=== PATIENT | female | born 1950 | race American Indian/Alaskan Native ===

== ENCOUNTER 2018-09-05 15:53 | Inpatient (IN) | payer MEDICARE ==
[2018-09-05] MEDS ORDERED: DUONEB *Not for PRN Use IH ONE (16:34)
--- NOTE | 2018-09-05 16:38 | Emergency Department Report ---
Addendum entered and electronically signed by DILCIA KUNZ FNP 09/05/18 19:03: EKG interpreted by attending Normal sinus rhythm Original Note: ED Shortness of Breath HPI - General Chief Complaint: Dyspnea/Respdistress Stated Complaint: SOB/CHEYENNE Source: patient Mode of arrival: Ambulatory Limitations: No Limitations - History of Present Illness Initial Comments: This is a 68-year-old [place] female who presents with cough, shortness of breath for one week. Patient states she saw her primary care provider and will start yesterday and was diagnosed with pneumonia. Patient states she was given a shot of antibiotics while in office and started on Augmentin and cough syrup. Patient states she could only afford to purchase antibiotics which is not improved in symptoms. Stays on discharge paperwork her PCP ordered an inhaler but never received area pharmacy. Patient reports cough, chest pain and back pain on the right side is worse than on initial symptoms. MD Complaint: shortness of breath, cough, pain with inspiration Onset/Timin -: week(s) Radiation: back Severity: severe Pain Scale: 7 Quality: sharp, stabbing Consistency: intermittent Improves With: nothing Worsens With: movement, coughing, inspiration Associated Symptoms: chest pain, pain with inspiration, sputum production - Related Data Home Oxygen Therapy: No Home Medications Medication Instructions Recorded Confirmed Last Taken Gabapentin [Neurontin] 800 mg PO Q8H 12/13/15 12/13/15 Unknown Losartan [Cozaar] 50 mg PO QDAY 12/13/15 12/13/15 Unknown Naproxen [Naprosyn TAB] 375 mg PO BID 12/13/15 12/13/15 Unknown clonazePAM 1 mg PO QHS 12/13/15 12/13/15 Unknown metFORMIN [Glucophage] 1,000 mg PO BID 12/13/15 12/13/15 Unknown Previous Rx's Medication Instructions Recorded Last Taken Type Ciprofloxacin HCl [Ciprofloxacin 500 mg PO BID #14 tablet 12/16/15 Unknown Rx TAB] Citalopram [Celexa] 40 mg PO QDAY #30 12/16/15 Unknown Rx Duloxetine HCl [DULoxetine] 20 mg PO QDAY #30 12/16/15 Unknown Rx Zolpidem [Ambien] 5 mg PO QHS PRN #30 tablet 12/16/15 Unknown Rx metroNIDAZOLE [Flagyl] 500 mg PO Q8HR #21 tablet 12/16/15 Unknown Rx Allergies Allergy/AdvReac Type Severity Reaction Status Date / Time Iodinated Contrast- Oral and Allergy Angioedema Verified 09/05/18 15:57 IV Dye [Iodinated Contrast Media - IV Dye] ibuprofen [From Motrin] AdvReac Vomiting Verified 09/05/18 15:57 ED Review of Systems ROS: Stated complaint: SOB/CHEYENNE Other details as noted in HPI Constitutional: denies: chills, fever ENT: congestion. denies: ear pain, throat pain Respiratory: cough, shortness of breath, SOB with exertion. denies: wheezing Cardiovascular: chest pain (right sided chest pain). denies: palpitations Gastrointestinal: denies: abdominal pain, nausea, diarrhea Musculoskeletal: back pain. denies: joint swelling, arthralgia Neurological: denies: headache, weakness, paresthesias Psychiatric: denies: anxiety, depression ED Past Medical Hx - Past Medical History Hx Hypertension: Yes Hx Diabetes: Yes Hx Arthritis: Yes - Social History Smoking Status: Former Smoker Substance Use Type: None - Medications Home Medications: Home Medications Medication Instructions Recorded Confirmed Last Taken Type Gabapentin [Neurontin] 800 mg PO Q8H 12/13/15 12/13/15 Unknown History Losartan [Cozaar] 50 mg PO QDAY 12/13/15 12/13/15 Unknown History Naproxen [Naprosyn TAB] 375 mg PO BID 12/13/15 12/13/15 Unknown History clonazePAM 1 mg PO QHS 12/13/15 12/13/15 Unknown History metFORMIN [Glucophage] 1,000 mg PO BID 12/13/15 12/13/15 Unknown History Ciprofloxacin HCl [Ciprofloxacin 500 mg PO BID #14 tablet 12/16/15 Unknown Rx TAB] Citalopram [Celexa] 40 mg PO QDAY #30 12/16/15 12/13/15 Unknown Rx Duloxetine HCl [DULoxetine] 20 mg PO QDAY #30 12/16/15 12/13/15 Unknown Rx Zolpidem [Ambien] 5 mg PO QHS PRN #30 tablet 12/16/15 Unknown Rx metroNIDAZOLE [Flagyl] 500 mg PO Q8HR #21 tablet 12/16/15 Unknown Rx ED Physical Exam - General Limitations: No Limitations General appearance: alert, in no apparent distress, obese - ENT ENT exam: Present: mucous membranes moist, other (turbinates mildly congested with clear discharge). Absent: TM's normal bilaterally, normal external ear exam - Respiratory Respiratory exam: Present: rhonchi. Absent: wheezes, rales, stridor, chest wall tenderness, accessory muscle use, decreased breath sounds, prolonged expiratory - Cardiovascular Cardiovascular Exam: Present: regular rate, normal rhythm. Absent: normal heart sounds, systolic murmur, diastolic murmur, rubs, gallop - GI/Abdominal GI/Abdominal exam: Present: soft, normal bowel sounds. Absent: distended, tenderness, guarding, rebound, rigid, organomegaly, mass - Neurological Exam Neurological exam: Present: alert, oriented X3 - Psychiatric Psychiatric exam: Present: normal affect, normal mood - Skin Skin exam: Present: warm, dry, intact, normal color. Absent: rash ED Course Vital Signs 09/05/18 09/05/18 09/05/18 15:57 17:30 17:45 Temperature 97.9 F Pulse Rate 77 Pulse Rate [ 68 72 Anterior] Respiratory 24 Rate Respiratory 26 H 26 H Rate [Anterior] Blood Pressure 159/59 O2 Sat by Pulse 93 Oximetry ED Medical Decision Making - Lab Data Result diagrams: 09/05/18 16:45 09/05/18 16:48 Lab Results 09/05/18 09/05/18 Range/Units 16:45 16:48 WBC 12.9 H (4.5-11.0) K/mm3 RBC 3.48 L (3.65-5.03) M/mm3 Hgb 10.2 (10.1-14.3) gm/dl Hct 32.4 (30.3-42.9) % MCV 93 (79-97) fl MCH 30 (28-32) pg MCHC 32 (30-34) % RDW 13.0 L (13.2-15.2) % Plt Count 439 (140-440) K/mm3 Lymph % (Auto) 24.6 (13.4-35.0) % [place] % (Auto) 6.7 (0.0-7.3) % Eos % (Auto) 0.4 (0.0-4.3) % Baso % (Auto) 0.4 (0.0-1.8) % Lymph # 3.2 (1.2-5.4) K/mm3 [place] # 0.9 H (0.0-0.8) K/mm3 Eos # 0.1 (0.0-0.4) K/mm3 Baso # 0.1 (0.0-0.1) K/mm3 Seg Neutrophils % 67.9 (40.0-70.0) % Seg Neutrophils # 8.8 H (1.8-7.7) K/mm3 Sodium 142 (137-145) mmol/L Potassium 4.2 (3.6-5.0) mmol/L Chloride 100.3 (98-107) mmol/L Carbon Dioxide 27 (22-30) mmol/L Anion Gap 19 mmol/L BUN 12 (7-17) mg/dL Creatinine 0.8 (0.7-1.2) mg/dL Estimated GFR > 60 ml/min BUN/Creatinine Ratio 15 % Glucose 122 H (65-100) mg/dL Calcium 9.4 (8.4-10.2) mg/dL Total Bilirubin 0.40 (0.1-1.2) mg/dL AST 19 (5-40) units/L ALT 13 (7-56) units/L Alkaline Phosphatase 104 (35-129) units/L Total Protein 6.9 (6.3-8.2) g/dL Albumin 3.9 (3.9-5) g/dL Albumin/Globulin Ratio 1.3 % - Radiology Data Radiology results: report reviewed FINAL REPORT EXAM: XR CHEST ROUTINE 2V HISTORY: SOB, chest and back pain TECHNIQUE: Two views of the chest Comparison: None FINDINGS: Normal heart size. Right upper lobe infiltrate. 3 centimeter right hilar ovoid opacity. Ill-defined reticular left upper lobe infiltrate as well. No effusion. IMPRESSION: Right greater than left upper lobe infiltrates. 3 centimeter ovoid right hilar opacity. Recommend CT chest with IV contrast for further characterization of the findings. - Medical Decision Making This is a 68 y.o. female presents with cough, chest discomfort, and congestion for 1 week. Patient is stable and was examined by me. Patient has slight distress. There is an 93% on room air. Given DuoNeb treatment and placed on oxygen 2 L. Chest xray, CMP, & CBC has been obtained and dictated by radiologist. 3 centimeter ovoid right hilar opacity. Right greater than left upper lobe infiltrates. Recommend CT chest with IV contrast for further characterization of the findings. Consulted Hospitalist Dr. Wang who agreed to admit patient. Patient will be admitted, awaiting bed. Critical care attestation.: If time is entered above; I have spent that time in minutes in the direct care of this critically ill patient, excluding procedure time. ED Disposition Clinical Impression: Cough in adult, Chest pain made worse by breathing Pneumonia Qualifiers: Pneumonia type: due to Mycoplasma pneumoniae Laterality: bilateral Lung location: unspecified part of lung Qualified Code(s): J15.7 - Pneumonia due to Mycoplasma pneumoniae Disposition: 09 OP ADMIT IP TO THIS HOSP Is pt being admited?: Yes Condition: Stable Instructions: Bacterial Pneumonia (ED), Chest Pain (ED)
[2018-09-05 17:17] LABS: Basophils # (Auto) 0.1 K/mm3 (0.0-0.1); Basophils % (Auto) 0.4 % (0.0-1.8); Eosinophils # (Auto) 0.1 K/mm3 (0.0-0.4); Eosinophils % (Auto) 0.4 % (0.0-4.3); Hematocrit 32.4 % (30.3-42.9); Hemoglobin 10.2 gm/dl (10.1-14.3); Lymphocytes # (Auto) 3.2 K/mm3 (1.2-5.4); Lymphocytes % (Auto) 24.6 % (13.4-35.0); Mean Corpuscular HGB Conc 32 % (30-34); Mean Corpuscular Volume 93 fl (79-97); Monocytes # (Auto) 0.9 K/mm3 (0.0-0.8); Monocytes % (Auto) 6.7 % (0.0-7.3); Platelet Count 439 K/mm3 (140-440); Red Blood Count 3.48 M/mm3 (3.65-5.03)
[2018-09-05 17:20] LABS: Alanine Aminotransferase 13 units/L (7-56); Albumin 3.9 g/dL (3.9-5); BUN/Creatinine Ratio 15; Blood Urea Nitrogen 12 mg/dL (7-17); Calcium 9.4 mg/dL (8.4-10.2); Hemolysis Index 0
--- NOTE | 2018-09-05 18:23 | XRay Report ---
FINAL REPORT EXAM: XR CHEST ROUTINE 2V HISTORY: SOB, chest and back pain TECHNIQUE: Two views of the chest Comparison: None FINDINGS: Normal heart size. Right upper lobe infiltrate. 3 centimeter right hilar ovoid opacity. Ill-defined reticular left upper lobe infiltrate as well. No effusion. IMPRESSION: Right greater than left upper lobe infiltrates. 3 centimeter ovoid right hilar opacity. Recommend CT chest with IV contrast for further characterizat ion of the findings.
[2018-09-05] MEDS ORDERED: NACL 0.9% 1000 ML 1,000 ML IV ONE (18:33)
[2018-09-05] MEDS ORDERED: ZITHROMAX 500 MG in NACL 0.9% 250ML 250 ML IV ONE (19:00)
[2018-09-05] MEDS ORDERED: ROCEPHIN 500 MG in NACL 0.9% 50 ML IV ONE (20:00)
[2018-09-05] MEDS ORDERED: TYLENOL PO PRN ×2 (23:16→23:53)
[2018-09-05] MEDS: PERCOCET 5/325 PO PRN (23:38)
[2018-09-05] MEDS ORDERED: D5NS 1,000 ML IV SCH (23:45)
--- NOTE | 2018-09-05 23:52 | History and Physical Report ---
History of Present Illness Date of examination: 09/05/18 Date of admission: 09/05/18 19:00 Chief complaint: Cough and SOB for 1 week History of present illness: 68-year-old [place] female presents with cough, shortness of breath for one week. Patient saw her primary care provider yesterday and was diagnosed with pneumonia. Patient states she was given a shot of antibiotics while in office and started on Augmentin and cough syrup. She did not buy the abx b/c of affordability. Low grade fever present. Past Medical History Hypertension: Yes Diabetes: Yes Arthritis: Yes Social History Smoking Status: Former Smoker Substance Use Type: None Surgical History na Family fistory Htn Medications Home Medications: Home Medications Medication Instructions Recorded Confirmed Last Taken Type Gabapentin [Neurontin] 800 mg PO Q8H 12/13/15 12/13/15 Unknown History Losartan [Cozaar] 50 mg PO QDAY 12/13/15 12/13/15 Unknown History Naproxen [Naprosyn TAB] 375 mg PO BID 12/13/15 12/13/15 Unknown History clonazePAM 1 mg PO QHS 12/13/15 12/13/15 Unknown History metFORMIN [Glucophage] 1,000 mg PO BID 12/13/15 12/13/15 Unknown History Ciprofloxacin HCl [Ciprofloxacin 500 mg PO BID #14 tablet 12/16/15 Unknown Rx TAB] Citalopram [Celexa] 40 mg PO QDAY #30 12/16/15 12/13/15 Unknown Rx Duloxetine HCl [DULoxetine] 20 mg PO QDAY #30 12/16/15 12/13/15 Unknown Rx Zolpidem [Ambien] 5 mg PO QHS PRN #30 tablet 12/16/15 Unknown Rx metroNIDAZOLE [Flagyl] 500 mg PO Q8HR #21 tablet 12/16/15 Unknown Rx Review of Systems ROS: Stated complaint: SOB/CHEYENNE Other details as noted in HPI Constitutional: denies: chills, fever ENT: congestion. denies: ear pain, throat pain Respiratory: cough, shortness of breath, SOB with exertion. denies: wheezing Cardiovascular: chest pain (right sided chest pain). denies: palpitations Gastrointestinal: denies: abdominal pain, nausea, diarrhea Musculoskeletal: back pain. denies: joint swelling, arthralgia Neurological: denies: headache, weakness, paresthesias Psychiatric: denies: anxiety, depression Medications and Allergies Allergies Allergy/AdvReac Type Severity Reaction Status Date / Time Iodinated Contrast- Oral and Allergy Angioedema Verified 09/05/18 15:57 IV Dye [Iodinated Contrast Media - IV Dye] ibuprofen [From Motrin] AdvReac Vomiting Verified 09/05/18 15:57 Home Medications Medication Instructions Recorded Confirmed Last Taken Type Gabapentin [Neurontin] 800 mg PO Q8H 12/13/15 09/05/18 Unknown History Losartan [Cozaar] 50 mg PO QDAY 12/13/15 09/05/18 Unknown History Naproxen [Naprosyn TAB] 375 mg PO BID 12/13/15 09/05/18 Unknown History clonazePAM 1 mg PO QHS 12/13/15 09/05/18 Unknown History metFORMIN [Glucophage] 1,000 mg PO BID 12/13/15 09/05/18 Unknown History Ciprofloxacin HCl [Ciprofloxacin 500 mg PO BID #14 tablet 12/16/15 09/05/18 Unknown Rx TAB] Citalopram [Celexa] 40 mg PO QDAY #30 12/16/15 09/05/18 Unknown Rx Duloxetine HCl [DULoxetine] 20 mg PO QDAY #30 12/16/15 09/05/18 Unknown Rx Zolpidem [Ambien] 5 mg PO QHS PRN #30 tablet 12/16/15 09/05/18 Unknown Rx metroNIDAZOLE [Flagyl] 500 mg PO Q8HR #21 tablet 12/16/15 09/05/18 Unknown Rx Active Meds: Active Medications Acetaminophen (Tylenol) 650 mg PO Q6H PRN PRN Reason: Pain, Mild (1-3) Oxycodone/Acetaminophen (Percocet 5/325) 1 tab PO Q4H PRN PRN Reason: Pain, Moderate (4-6) Last Admin: 09/05/18 23:38 Dose: 1 tab Documented by: Pneumococcal Polyvalent Vaccine (Pneumovax 23) 0.5 ml IM .ONCE ONE Stop: 09/06/18 12:01 Exam - Constitutional Vitals: Temp Pulse Resp BP Pulse Ox 97.9 F 80 26 H 159/59 97 09/05/18 15:57 09/05/18 20:00 09/05/18 20:00 09/05/18 15:57 09/05/18 20:00 Results - Labs CBC & Chem 7: 09/05/18 16:45 09/05/18 16:48 Labs: Laboratory Last Values WBC 12.9 K/mm3 (4.5-11.0) H 09/05/18 16:45 RBC 3.48 M/mm3 (3.65-5.03) L 09/05/18 16:45 Hgb 10.2 gm/dl (10.1-14.3) 09/05/18 16:45 Hct 32.4 % (30.3-42.9) 09/05/18 16:45 MCV 93 fl (79-97) 09/05/18 16:45 MCH 30 pg (28-32) 09/05/18 16:45 MCHC 32 % (30-34) 09/05/18 16:45 RDW 13.0 % (13.2-15.2) L 09/05/18 16:45 Plt Count 439 K/mm3 (140-440) 09/05/18 16:45 Lymph % (Auto) 24.6 % (13.4-35.0) 09/05/18 16:45 [place] % (Auto) 6.7 % (0.0-7.3) 09/05/18 16:45 Eos % (Auto) 0.4 % (0.0-4.3) 09/05/18 16:45 Baso % (Auto) 0.4 % (0.0-1.8) 09/05/18 16:45 Lymph # 3.2 K/mm3 (1.2-5.4) 09/05/18 16:45 [place] # 0.9 K/mm3 (0.0-0.8) H 09/05/18 16:45 Eos # 0.1 K/mm3 (0.0-0.4) 09/05/18 16:45 Baso # 0.1 K/mm3 (0.0-0.1) 09/05/18 16:45 Seg Neutrophils % 67.9 % (40.0-70.0) 09/05/18 16:45 Seg Neutrophils # 8.8 K/mm3 (1.8-7.7) H 09/05/18 16:45 Sodium 142 mmol/L (137-145) 09/05/18 16:48 Potassium 4.2 mmol/L (3.6-5.0) 09/05/18 16:48 Chloride 100.3 mmol/L (98-107) 09/05/18 16:48 Carbon Dioxide 27 mmol/L (22-30) 09/05/18 16:48 Anion Gap 19 mmol/L 09/05/18 16:48 BUN 12 mg/dL (7-17) 09/05/18 16:48 Creatinine 0.8 mg/dL (0.7-1.2) 09/05/18 16:48 Estimated GFR > 60 ml/min 09/05/18 16:48 BUN/Creatinine Ratio 15 % 09/05/18 16:48 Glucose 122 mg/dL (65-100) H 09/05/18 16:48 Calcium 9.4 mg/dL (8.4-10.2) 09/05/18 16:48 Total Bilirubin 0.40 mg/dL (0.1-1.2) 09/05/18 16:48 AST 19 units/L (5-40) 09/05/18 16:48 ALT 13 units/L (7-56) 09/05/18 16:48 Alkaline Phosphatase 104 units/L (35-129) 09/05/18 16:48 Total Protein 6.9 g/dL (6.3-8.2) 09/05/18 16:48 Albumin 3.9 g/dL (3.9-5) 09/05/18 16:48 Albumin/Globulin Ratio 1.3 % 09/05/18 16:48 Short CBC 09/05/18 Range/Units 16:45 WBC 12.9 H (4.5-11.0) K/mm3 Hgb 10.2 (10.1-14.3) gm/dl Hct 32.4 (30.3-42.9) % Plt Count 439 (140-440) K/mm3 BMP 09/05/18 16:48 Sodium 142 Potassium 4.2 Chloride 100.3 Carbon Dioxide 27 BUN 12 Creatinine 0.8 Glucose 122 H Calcium 9.4 Liver Function 09/05/18 Range/Units 16:48 Total Bilirubin 0.40 (0.1-1.2) mg/dL AST 19 (5-40) units/L ALT 13 (7-56) units/L Alkaline Phosphatase 104 (35-129) units/L Albumin 3.9 (3.9-5) g/dL - Imaging and Cardiology Imaging and Cardiology: CXR IMPRESSION: Right greater than left upper lobe infiltrates. 3 centimeter ovoid right hilar opacity. Recommend CT chest with IV contrast for further characterization of the findings. Assessment and Plan Advance Directives: Yes (Full code) VTE prophylaxis?: Chemical Plan of care discussed with patient/family: Yes - Patient Problems (1) Bilateral pneumonia Current Visit: Yes Status: Acute Qualifiers: Lung location: unspecified part of lung Plan to address problem: Bilateral PNA CT chest ordered IV ceftriaxone and Zirthromax (2) HTN (hypertension) Current Visit: Yes Status: Chronic Qualifiers: Hypertension type: essential hypertension Qualified Code(s): I10 - Essential (primary) hypertension Plan to address problem: Cont antihypertensives (3) Type 2 diabetes mellitus Current Visit: No Status: Chronic Plan to address problem: Cont oral hypoglycemics and coverage (4) Depression Current Visit: Yes Status: Chronic Qualifiers: Depression Type: unspecified Qualified Code(s): F32.9 - Major depressive disorder, single episode, unspecified Plan to address problem: Cont Home antidepressants (5) DVT prophylaxis Current Visit: Yes Status: Acute Plan to address problem: On Lovenox and GI prophylaxis
[2018-09-05] MEDS ORDERED: ZOFRAN IV PRN (23:53)
[2018-09-05] MEDS ORDERED: DILAUDID IV PRN (23:53)
[2018-09-05] MEDS ORDERED: SODIUM CHLORIDE FLUSH SYRINGE 10 ML IV PRN (23:53)
[2018-09-05] MEDS ORDERED: AMBIEN PO PRN (23:58)
[2018-09-06] MEDS: NEURONTIN PO SCH ×3 (00:36→17:04)
[2018-09-06] MEDS: SODIUM CHLORIDE FLUSH SYRINGE 10 ML IV SCH ×2 (00:37→11:14)
[2018-09-06] MEDS: TESSALON PERLES PO PRN ×3 (03:14→16:53)
[2018-09-06 06:59] LABS: Basophils % (Auto) 0.5 % (0.0-1.8); Eosinophils # (Auto) 0.1 K/mm3 (0.0-0.4); Hematocrit 30.6 % (30.3-42.9); Hemoglobin 9.9 gm/dl (10.1-14.3); Lymphocytes # (Auto) 3.6 K/mm3 (1.2-5.4); Lymphocytes % (Auto) 36.7 % (13.4-35.0); Mean Corpuscular HGB Conc 32 % (30-34); Mean Corpuscular Volume 94 fl (79-97); Monocytes # (Auto) 0.8 K/mm3 (0.0-0.8); Monocytes % (Auto) 7.9 % (0.0-7.3); Platelet Count 405 K/mm3 (140-440); Red Blood Count 3.25 M/mm3 (3.65-5.03); Red Cell Distribution Width 13.2 % (13.2-15.2)
[2018-09-06 07:50] LABS: Alanine Aminotransferase 12 units/L (7-56); Albumin 3.6 g/dL (3.9-5); BUN/Creatinine Ratio 11; Blood Urea Nitrogen 8 mg/dL (7-17); Hemolysis Index 0
[2018-09-06] MEDS: DUONEB *Not for PRN Use IH SCH ×3 (07:51→16:17)
[2018-09-06] MEDS ORDERED: GLUCOPHAGE PO SCH (08:00)
--- NOTE | 2018-09-06 08:40 | Cat Scan Report ---
CT CHEST WITHOUT CONTRAST: HISTORY: Bilateral pneumonia, shortness of breath, chest and back pain. COMPARISON: Chest x-ray dated 09/05/18. TECHNIQUE: Helical CT in 1.25mm intervals without IV contrast. Sagittal and coronal reformatted images. FINDINGS: Thyroid gland: Normal. Tracheobronchial tree: Normal. Esophagus: Normal. Heart: Normal. Pericardium: Normal. Mediastinum: A solitary mildly enlarged precarinal lymph node measures 2.4 x 1.7 cm and demonstrates relatively normal architecture. No additional enlarged mediastinal lymph nodes. Ovoid density at the right hilum apparently represents confluence of pulmonary vessels. Lung Harris: There are patchy areas of groundglass infiltration in both upper lobes and superior segments of the lower lobes. No evidence for consolidation, nodule or mass. No underlying parenchymal lung disease is appreciated. Pleural Spaces: Normal. Musculoskeletal: Intact. No evidence for fracture or suspicious bony lesion. Minimal thoracic spondylosis. IMPRESSION: Nonspecific areas of groundglass infiltration in the upper lung zones as described. This could represent an atypical pneumonia, inhalational injury or other upper lobe disease. Please correlate with the clinical presentation of the patient. Solitary mildly enlarged precarinal lymph node. See above. This may be reactive in nature.
[2018-09-06] MEDS ORDERED: ZITHROMAX 500 MG in NACL 0.9% 250ML 250 ML IV SCH (10:00)
[2018-09-06] MEDS ORDERED: celeXA PO SCH (10:00)
[2018-09-06] MEDS ORDERED: PEPCID IV SCH (10:00)
[2018-09-06] MEDS ORDERED: DULOXETINE HCL 20 MG PO SCH (10:00)
[2018-09-06] MEDS ORDERED: COZAAR PO SCH (10:00)
[2018-09-06] MEDS ORDERED: ROCEPHIN/NS 2 GM/100 ML 2 GM/100 ML BAG IV SCH (10:00)
[2018-09-06] MEDS ORDERED: NAPROSYN PO SCH (10:00)
[2018-09-06] MEDS: HumuLIN R SUB-Q SCH ×2 (11:30→19:39)
[2018-09-06] MEDS ORDERED: PNEUMOVAX 23 IM ONE (12:00)
[2018-09-06 13:59] VITALS: BP 137/61
--- NOTE | 2018-09-06 15:23 | Discharge Summary ---
Providers - Providers Date of Admission: 09/05/18 19:00 Date of discharge: 09/06/18 Attending physician: ELSY MOSES Primary care physician: ROSALIE NORMAN Hospitalization Reason for admission: PNA Condition: Stable Pertinent studies: CXR CT chest Hospital course: 68-year-old [place] female presents with cough, shortness of breath for one week. Patient saw her primary care provider and was diagnosed with pneumonia. Patient states she was given a shot of antibiotics while in office and started on Augmentin and cough syrup. She did not buy the abx and came to the hospital. Patient was afebrile with mild leukocytosis, started on abx and clinically improved. she was counseled for compliance. She was then discharged home with outpt followup. Discharge diagnosis: / Bilateral pneumonia w/o sepsis d/c home with levaquin for total 5 days /Leukocytosis, stress induced, not septic - sepsis protocol not initiated on admission trended down. /Respiratory distress with tachypnea - likely from PNA, resolved /HTN (hypertension) Cont antihypertensives /Type 2 diabetes mellitus Cont oral hypoglycemics / Depression Cont Home antidepressants, not suicidal / DVT prophylaxis Placed on On Lovenox Disposition: DC- TO HOME OR SELFCARE Time spent for discharge: 34 minutes Core Measure Documentation - Palliative Care Palliative Care/ Comfort Measures: Not Applicable - Core Measures Any of the following diagnoses?: none Exam - Physical Exam Narrative exam: - General Limitations: No Limitations General appearance: alert, in no apparent distress, obese - ENT ENT exam: Present: mucous membranes moist, other (turbinates mildly congested with clear discharge). Absent: TM's normal bilaterally, normal external ear exam - Respiratory Respiratory exam: Present: rhonchi. Absent: wheezes, rales, stridor, chest wall tenderness, accessory muscle use, decreased breath sounds, prolonged expiratory - Cardiovascular Cardiovascular Exam: Present: regular rate, normal rhythm. Absent: normal heart sounds, systolic murmur, diastolic murmur, rubs, gallop - GI/Abdominal GI/Abdominal exam: Present: soft, normal bowel sounds. Absent: distended, tenderness, guarding, rebound, rigid, organomegaly, mass - Neurological Exam Neurological exam: Present: alert, oriented X3 - Psychiatric Psychiatric exam: Present: normal affect, normal mood - Skin Skin exam: Present: warm, dry, intact, normal color. Absent: rash - Constitutional Vitals: Temp Pulse Resp BP Pulse Ox 98.6 F 66 18 137/61 98 09/06/18 13:22 09/06/18 13:22 09/06/18 13:22 09/06/18 13:22 09/06/18 13:22 Plan Activity: advance as tolerated Weight Bearing Status: Non-Weight Bearing Diet: diabetic Follow up with: ROSALIE NORMAN MD [Primary Care Provider] - 3-5 Days Prescriptions: ALBUTEROL Inhaler(NF) [VENTOLIN Inhaler(NF)] 1 puff IH QID PRN 30 Days #30 inha PRN Reason: Shortness Of Breath levoFLOXacin [Levaquin] 750 mg PO QDAY #5 tablet
[2018-09-06] MEDS: PERCOCET 5/325 PO PRN (16:53)
== END 2018-09-06 20:25 | disposition home or self-care (01) | DRG 195 ==
LOC: ED 15:53 → 2B-ACE 19:00
PROVIDERS: ADMIT Internal Medicine; ATTEND Internal Medicine
PROC: 3E0234Z Introduction of Serum, Toxoid and Vaccine into Muscle, Percutaneous Approach (ICD-10-PCS; principal; 2018-09-06)
DX: J15.7 Pneumonia due to Mycoplasma pneumoniae (principal); F32.9 Major depressive disorder, single episode, unspecified; D72.829 Elevated white blood cell count, unspecified; R06.82 Tachypnea, not elsewhere classified; I10 Essential (primary) hypertension; E11.9 Type 2 diabetes mellitus without complications; M54.9 Dorsalgia, unspecified; M19.90 Unspecified osteoarthritis, unspecified site; Z87.891 Personal history of nicotine dependence; Z88.8 Allergy status to other drugs, medicaments and biological substances; Z91.041 Radiographic dye allergy status; Z82.49 Family history of ischemic heart disease and other diseases of the circulatory system; Z23 Encounter for immunization
CPT/HCPCS: 36415; 71046; 71250; 80053; 83036; 85025; 90471; 90732; 93005; 93010; 94640; 94644; 99406; G0378; G0009; J0456; J0696; J1170; J7030; J7042; J7050

== ENCOUNTER 2019-11-19 19:53 | Emergency (ER) | payer MEDICARE ==
[2019-11-19 20:14] LABS: Hematocrit 36.5 % (30.3-42.9); Hemoglobin 11.7 gm/dl (10.1-14.3); Mean Corpuscular HGB Conc 32 % (30-34); Mean Corpuscular Volume 89 fl (79-97); Platelet Count 341 K/mm3 (140-440); Red Blood Count 4.11 M/mm3 (3.65-5.03); Red Cell Distribution Width 14.1 % (13.2-15.2)
[2019-11-19 20:37] LABS: Alanine Aminotransferase 19 units/L (7-56); Albumin 4.2 g/dL (3.9-5); BUN/Creatinine Ratio 14; Blood Urea Nitrogen 13 mg/dL (7-17); Calcium 9.7 mg/dL (8.4-10.2); Hemolysis Index 5
--- NOTE | 2019-11-19 20:38 | XRay Report ---
CHEST 2 VIEWS, 11/19/2019 8:23 PM INDICATION: Shortness of breath. COMPARISON: Chest radiograph, 09/05/2018 FINDINGS: Support devices: None Heart: The heart is normal in size. Lungs/pleura: The lungs are clear of focal airspace disease or significant pleural effusion. Prominen ce of the right hilar region is unchanged. Additional findings: There is mild bony degenerative change of the thoracic spine. IMPRESSION: 1. No evidence of acute cardiopulmonary process. Signer Name: Tiffanie Hobson MD Signed: 11/19/2019 8:34 PM Workstation Name: [id number]
[2019-11-19 21:14] VITALS: BP 109/77
[2019-11-20] MEDS ORDERED: INSULIN REGULAR, HUMAN 100 UNITS/1 ML SUB-Q ONE (00:52)
--- NOTE | 2019-11-20 00:57 | Emergency Department Report ---
ED General Adult HPI - General Chief complaint: Hyperglycemia Stated complaint: SUGAR HIGH Time Seen by Provider: 11/20/19 00:28 Source: patient Mode of arrival: Ambulatory Limitations: No Limitations - History of Present Illness Initial comments: 69-year-old female with history of hypertension and diabetes presents to ED with complaint of elevated glucose. Patient states she was recently started on a new diabetes medication a couple weeks ago, but states her glucose has been out of control. Patient states her glucose was reading 600 the other day. States she was seen in urgent care earlier today it was 530 or so they advised her to come to the emergency room. Patient states she has an appointment with her PCP on tomorrow. -: week(s) (2) Improves with: none Worsens with: none Associated Symptoms: denies: fever/chills, nausea/vomiting - Related Data Home Medications Medication Instructions Recorded Confirmed Last Taken Gabapentin [Neurontin] 800 mg PO Q8H 12/13/15 09/05/18 Unknown Losartan [Cozaar] 50 mg PO QDAY 12/13/15 09/05/18 Unknown Naproxen [Naprosyn TAB] 375 mg PO BID 12/13/15 09/05/18 Unknown clonazePAM 1 mg PO QHS 12/13/15 09/05/18 Unknown metFORMIN [Glucophage] 1,000 mg PO BID 12/13/15 09/05/18 Unknown Previous Rx's Medication Instructions Recorded Last Taken Type Citalopram [Celexa] 40 mg PO QDAY #30 12/16/15 Unknown Rx Duloxetine HCl [DULoxetine] 20 mg PO QDAY #30 12/16/15 Unknown Rx Zolpidem [Ambien] 5 mg PO QHS PRN #30 tablet 12/16/15 Unknown Rx ALBUTEROL Inhaler(NF) [VENTOLIN 1 puff IH QID PRN 30 Days #30 inha 09/06/18 Unk nown Rx Inhaler(NF)] levoFLOXacin [Levaquin] 750 mg PO QDAY #5 tablet 09/06/18 Unknown Rx Allergies Allergy/AdvReac Type Severity Reaction Status Date / Time Iodinated Contrast Media Allergy Angioedema Verified 09/05/18 15:57 [Iodinated Contrast Media - IV Dye] mercury (elemental) Allergy Unknown Verified 11/19/19 19:58 ibuprofen [From Motrin] AdvReac Vomiting Verified 09/05/18 15:57 ED Review of Systems ROS: Stated complaint: SUGAR HIGH Other details as noted in HPI Comment: All other systems reviewed and negative Constitutional: denies: chills, fever Endocrine: increased urine Gastrointestinal: denies: nausea, vomiting ED Past Medical Hx - Past Medical History Hx Hypertension: Yes Hx Diabetes: Yes Hx Arthritis: Yes - Social History Smoking Status: Never Smoker Substance Use Type: None - Medications Home Medications: Home Medications Medication Instructions Recorded Confirmed Last Taken Type Gabapentin [Neurontin] 800 mg PO Q8H 12/13/15 09/05/18 Unknown History Losartan [Cozaar] 50 mg PO QDAY 12/13/15 09/05/18 Unknown History Naproxen [Naprosyn TAB] 375 mg PO BID 12/13/15 09/05/18 Unknown History clonazePAM 1 mg PO QHS 12/13/15 09/05/18 Unknown History metFORMIN [Glucophage] 1,000 mg PO BID 12/13/15 09/05/18 Unknown History Citalopram [Celexa] 40 mg PO QDAY #30 12/16/15 09/05/18 Unknown Rx Duloxetine HCl [DULoxetine] 20 mg PO QDAY #30 12/16/15 09/05/18 Unknown Rx Zolpidem [Ambien] 5 mg PO QHS PRN #30 tablet 12/16/15 09/05/18 Unknown Rx ALBUTEROL Inhaler(NF) [VENTOLIN 1 puff IH QID PRN 30 Days #30 inha 09/06/18 Unknown Rx Inhaler(NF)] levoFLOXacin [Levaquin] 750 mg PO QDAY #5 tablet 09/06/18 Unknown Rx ED Physical Exam - General Limitations: No Limitations General appearance: alert, in no apparent distress - Head Head exam: Present: atraumatic, normocephalic - Eye Eye exam: Present: normal appearance, EOMI - ENT ENT exam: Present: mucous membranes moist - Neck Neck exam: Present: normal inspection - Respiratory Respiratory exam: Present: normal lung sounds bilaterally. Absent: respiratory distress - Cardiovascular Cardiovascular Exam: Present: regular rate, normal rhythm - GI/Abdominal GI/Abdominal exam: Absent: distended - Extremities Exam Extremities exam: Present: normal inspection - Neurological Exam Neurological exam: Present: alert, oriented X3 - Psychiatric Psychiatric exam: Present: normal affect, normal mood - Skin Skin exam: Present: warm, dry, intact, normal color ED Course Vital Signs 11/19/19 11/19/19 19:56 21:10 Temperature 98.0 F 98 F Pulse Rate 91 H 90 Respiratory 18 18 Rate Blood Pressure 137/77 109/77 O2 Sat by Pulse 98 98 Oximetry ED Medical Decision Making - Lab Data Result diagrams: 11/19/19 20:04 11/19/19 20:04 - Medical Decision Making - glucose up and down x 2 weeks due to new medication - reading of 530 earlier today - labs currently show glucose 351 w/ nml VBG and bicarb - does not appear to be in DKA - SQ insulin given here in ED - patient reports she has appt w/ PCP on tomorrow; PCP can adjust meds at that time - return precautions given. - Differential Diagnosis hyperglycemia, DKA Critical care attestation.: If time is entered above; I have spent that time in minutes in the direct care of this critically ill patient, excluding procedure time. ED Disposition Clinical Impression: Hyperglycemia Disposition: DC-01 TO HOME OR SELFCARE Is pt being admited?: No Condition: Stable Instructions: Diabetic Hyperglycemia (ED) Referrals: TOERY DUKE MD [Primary Care Provider] - 11/21/19 Time of Disposition: 00:54
== END 2019-11-20 01:13 | disposition home or self-care (01) ==
LOC: ED 19:53
DX: E11.65 Type 2 diabetes mellitus with hyperglycemia (principal); I10 Essential (primary) hypertension; M13.88 Other specified arthritis, other site; Z79.899 Other long term (current) drug therapy; Z88.6 Allergy status to analgesic agent; Z91.041 Radiographic dye allergy status; Z91.09 Other allergy status, other than to drugs and biological substances
CPT/HCPCS: 36415; 71046; 80053; 82805; 82962; 85027; 93005; 93010; 96372; J1815